=== PATIENT | male | born 1950 | race Caucasian/White ===

== ENCOUNTER → 2017-05-09 | Outpatient (CLI) | payer OTHER, MEDICARE | LOC: BMCIMAGING 11:00 | PROVIDERS: ATTEND Internal Medicine | DX: M50.31 Other cervical disc degeneration, high cervical region (principal); M48.02 Spinal stenosis, cervical region | CPT/HCPCS: 72050; G0463 ==

== ENCOUNTER → 2017-05-24 | Outpatient (CLI) | payer OTHER, MEDICARE | LOC: FIMAGING 16:12 | PROVIDERS: ATTEND Internal Medicine | DX: M50.31 Other cervical disc degeneration, high cervical region (principal); M47.812 Spondylosis without myelopathy or radiculopathy, cervical region ==

== ENCOUNTER 2018-10-07 09:50 | Emergency (ER) | payer OTHER, MEDICARE ==
[2018-10-07 09:59] VITALS: BP 125/66
--- NOTE | 2018-10-07 10:03 | EDPHY ---
H & P Stated Complaint: left eye blurry w/floaters-starting yesterday Time Seen by Provider: 10/07/18 10:02 - Personal History Current Tetanus Diphtheria and Acellular Pertussis (TDAP): Yes - Medical/Surgical History Hx Asthma: No Hx Chronic Respiratory Disease: No Hx Diabetes: No Hx Cardiac Disease: No Hx Renal Disease: No Hx Cirrhosis: No Hx Alcoholism: No Hx HIV/AIDS: No Hx Splenectomy or Spleen Trauma: No Other PMH: left eye dominant - Social History Smoking Status: Former smoker Constitutional: Initial Vital Signs Temperature (C) 36.8 C 10/07/18 09:51 Heart Rate 62 10/07/18 09:51 Respiratory Rate 14 10/07/18 09:51 Blood Pressure 125/66 H 10/07/18 09:51 O2 Sat (%) 94 10/07/18 09:51 O2 Delivery Mode Room Air Allergies/Adverse Reactions: No Known Allergies Allergy (Verified 10/07/18 09:56) Home Medications: Medication Instructions Recorded Fish Oil 1000 mg (*) 10/07/18 Lexapro 10/07/18 Lisinopril 10/07/18 Norvasc 10 mg (*) 10/07/18 Simvastatin 10/07/18 Vitamin D3 (*) 10/07/18 Medical Decision Making ED Course/Re-evaluation: CHIEF COMPLAINT: Left eye pain with floaters in vision fied HISTORY OF PRESENT ILLNESS: The patient is a left eye dominant male complaining of increasing left eye pain with floaters, onset several weeks ago. Around several weeks ago he started to slowly develop mild left eye pain and a few floaters in that eye. The floaters felt like they started from the left side of his eye and moved across to the right. It also felt like he was looking through a "spider-web". In addition to those symptoms he occasionally has "bright flashes of light" which concerned him. This symptoms were stable for around 2 weeks. Last night the pain and floaters became more significant and he noticed more blurriness in his nasal visual field. He denies recent trauma or injury, changes in his medications. He last saw an building construction engineer over a year ago. No fever, headache, chest pain, shortness of breath, abdominal pain, urinary or bowel complaints, numbness, paresthesias. REVIEW OF SYSTEMS: A comprehensive 10 system review of systems is otherwise negative aside from elements mentioned in the history of present illness and medical decision making. PHYSICAL EXAM: HR, BP, O2 Sat, RR. Temp noted General Appearance: Alert, well hydrated, appropriate, and non-toxic appearing. Head: Atraumatic without scalp tenderness or obvious injury Visual Acuity: Noted from Nurse's notes. Left nasal visual field changes. Pupils: PERRLA, EOMI, no nystagmus, no trauma, no injection. Lids: No edema or swelling Skin: No proptosis, no periorbital erythema or swelling, no vesicles Conjunctivae: Not injected, not icteric, no discharge Anterior chamber: Normal, no hyphema or hypopyon Posterior Chamber: No papilledema or hemorrhages. Past medical history: Left eye dominant Past surgical history: Denies Family history: Denies Social history: at bedside, lives in [place], retired DIAGNOSTICS/PROCEDURES/CRITICAL CARE TIME: Not indicated. DIFFERENTIAL DIAGNOSIS: The differential diagnosis for the patient's eye pain included but was not limited to vitreous humour detachment, retinal detachment, recent injury or trauma. MEDICAL DECISION MAKING: The patient is a left eye dominant male presenting with increasing left eye pain with floaters, onset several weeks ago. These symptoms exacerbated yesterday and he feels like he is looking through a "spider-web". His exam using a slit lamp is normal. I believe he has a vitreous humor detachment, but not a retinal detachment as he is having vasal visual field changes. I will consult with an building construction engineer prior to discharging this patient. 1026: I consulted with Dr. Fulton, building construction engineer, regarding this patient. He agrees to consult on this patient in the office tomorrow morning. 1030: Reassessed patient and discussed plan for building construction engineer follow up. Return precautions provided; patient is comfortable with this plan. Departure - Departure Disposition: Home, Routine, Self-Care Clinical Impression: Left eye pain, Blurred vision, left eye Condition: Good Instructions: Blurred Vision (ED), Eye Pain (ED) Additional Instructions: 1. Follow up with your building construction engineer tomorrow. Please call Dr. Fulton' office to schedule the appointment for tomorrow morning. 2. Return to the Emergency Department for severe headache, vomiting, vision changes, confusion, fever or other concerns. Referrals: Jeromy Mcnamara MD [Primary Care Provider] - As per Instructions Rafael Hammonds MD [Medical Doctor] - As per Instructions Mario Fulton MD [Medical Doctor] - As per Instructions Report Scribed for: Kenroy Hernandez Report Scribed by: Carlita Fuentes Date of Report: 10/07/18 Time of Report: 10:04
[2018-10-07] MEDS ORDERED: FLUORESCEIN SODIUM 1 MG STRIP OP ONE (10:07)
[2018-10-07] MEDS ORDERED: PROPARACAINE 0.5% 15 ML OPHT DROP ONE (10:08)
== END 2018-10-07 10:43 | disposition home or self-care (01) ==
DX: H57.12 Ocular pain, left eye (principal); H53.8 Other visual disturbances; Z87.891 Personal history of nicotine dependence